=== PATIENT | male | born 1975 | race Two or more races ===

== ENCOUNTER 2017-04-15 07:11 | Emergency (ER) | payer BC, OTHER ==
--- NOTE | 2017-04-15 08:57 | RAD ---
INDICATION: Left hand injury. TECHNIQUE: 4 views of the left hand were obtained. FINDINGS: The bones are in normal alignment. There is a lucent lesion which is mildly expansile with endosteal scalloping measuring 1.2 x 0.9 cm in size in the distal diaphysis of the fifth metacarpal. On one view there is suggestion of an oblique nondisplaced pathologic fracture through this region. IMPRESSION: LUCENT SLIGHTLY EXPANSILE LESION IN THE DISTAL DIAPHYSIS OF THE FIFTH METACARPAL POSSIBLY AN ENCHONDROMA ALTHOUGH NONSPECIFIC. THERE APPEARS TO BE A NONDISPLACED PATHOLOGIC FRACTURE THROUGH THIS REGION. RECOMMEND CLINICAL CORRELATION AND ORTHOPEDIC FOLLOW-UP.
[2017-04-15 10:44] VITALS: BP 120/72
--- NOTE | 2017-04-16 08:31 | ED ---
Yinka Schmid Angela, scribed for Zackary Lundberg MD on 04/15/17 at 0810 . Upper Extremity Pain - HPI Summary HPI Summary: This pt is a 42 y/o male prsenting to [facility] c/o left hand since yesterday s/p playing hockey. Pt reports he had a hockey game yesterday but denies injuring his hand. Pt has decreased range of motion of his left fifth finger. He notes his pain is aggravated with movement. Denies any PMHx. - History of Current Complaint Chief Complaint: EDExtremityUpper Stated Complaint: LT HAND INJURY Time Seen by Provider: 04/15/17 08:00 Hx Obtained From: Patient Mechanism Of Injury: Other - no trauma or injury Onset/Duration: Started Hours Ago, Still Present Timing: Lasting Hours Severity Currently: Moderate Pain Location: Hand - left Aggravating Factor(s): Movement Alleviating Factor(s): Nothing Associated Signs & Symptoms: Positive: Negative PMH/Surg Hx/FS Hx/Imm Hx Endocrine/Hematology History: Denies: Hx Diabetes Cardiovascular History: Denies: Hx Hypertension Infectious Disease History: No Infectious Disease History: Denies: Traveled Outside the [place] in Last 30 Days - Family History Known Family History: Positive: None - Social History Alcohol Use: None Substance Use Type: Reports: None Smoking Status (MU): Never Smoked Tobacco Review of Systems Negative: Fever, Chills Eyes: Negative ENT: Negative Cardiovascular: Negative Respiratory: Negative Musculoskeletal: Other - left hand pain Skin: Negative Neurological: Negative All Other Systems Reviewed And Are Negative: Yes Physical Exam - Summary Physical Exam Summary: VITAL SIGNS: Reviewed. GENERAL: Patient is a well-developed and nourished male who is lying comfortable in the stretcher. Patient is not in any acute respiratory distress. HEAD AND FACE: No signs of trauma. No ecchymosis, hematomas or skull depressions. No sinus tenderness. EYES: PERRLA, EOMI x 2, No injected conjunctiva, no nystagmus. EARS: Hearing grossly intact. Ear canals and tympanic membranes are within normal limits. MOUTH: Oropharynx within normal limits. NECK: Supple, trachea is midline, no adenopathy, no JVD, no carotid bruit, no c- spine tenderness, neck with full ROM. CHEST: Symmetric, no tenderness at palpation LUNGS: Clear to auscultation bilaterally. No wheezing or crackles. CVS: Regular rate and rhythm, S1 and S2 present, no murmurs or gallops appreciated. ABDOMEN: Soft, non-tender. No signs of distention. No rebound no guarding, and no masses palpated. Bowel sounds are normal. EXTREMITIES: no edema, no cyanosis or clubbing. LUE: left hand tenderness in the lateral aspect of the hand. No swelling. No ecchymosis. Decreased ROM of left pinky. NEURO: Alert and oriented x 3. No acute neurological deficits. Speech is normal and follows commands. SKIN: Dry and warm Triage Information Reviewed: Yes Vital Signs On Initial Exam: Initial Vitals Temp Pulse Resp BP Pulse Ox 97.5 F 56 18 124/75 96 04/15/17 07:17 04/15/17 07:17 04/15/17 07:17 04/15/17 07:17 04/15/17 07:17 Vital Signs Reviewed: Yes Diagnostics - Vital Signs Vital Signs Temp Pulse Resp BP Pulse Ox 04/15/17 07:17 97.5 F 56 18 124/75 96 - Laboratory Lab Statement: Any lab studies that have been ordered have been reviewed, and results considered in the medical decision making process. - Radiology Left hand XR Xray Interpretation: Positive (See Comments) - IMPRESSION: Lucent slightly expansible lesion in the distal diaphysis of the fifth metacarpal possibly an enchondroma although nonspecific. There appears to be a nondisplaced pathologic fracture through this region. Recommend clinical correlation and orthopedic follow up. Dr. Lundberg has reviewed this radiology report. Radiology Interpretation Completed By: Radiologist Course/Dx - Course Course Of Treatment: Ulnar gutter splint placed w/o complications. Neurovascular intact before and after splint. Assessment/Plan: This pt is a 42 y/o male prsenting to [facility] c/o left hand since yesterday s/p playing hockey. Pt reports he had a hockey game yesterday but denies injuring his hand. Pt has decreased range of motion of his left fifth finger. He notes his pain is aggravated with movement. Denies any PMHx. In the ED course the pt denied any pain medications. Left hand XR shows lucent slightly expansible lesion in the distal diaphysis of the fifth metacarpal possibly an enchondroma although nonspecific. There appears to be a nondisplaced pathologic fracture through this region. Recommend clinical correlation and orthopedic follow up. I discussed the case with Dr. Bowden, orthopedist, who reports the pt can be discharged home with follow up from Dr. Resendez to rule out enchondroma. Therefore the pt will be discharged to home with follow up from Dr. Resendez, orthopedist. Pt is hemodynamically stable, alert and oriented x3. - Diagnoses Provider Diagnoses: Fracture of fifth metacarpal bone of left hand, rule out enchondroma - Physician Notifications Discussed Care of Patient With: Cony Bowden Time Discussed With Above Provider: 09:34 Instructed by Provider To: Other - I discussed pt care with Dr. Bowden, orthopedist, who reports the pt can be discharged home with follow up from Dr. Resendez. Discharge - Discharge Plan Condition: Stable Disposition: HOME Patient Education Materials: Finger Fracture (ED) Referrals: Silas Vazquez MD [Primary Care Provider] - Lexa Resendez MD [Medical Doctor] - Additional Instructions: Please follow up with Dr. Resendez, orthopedics, and your primary care provider. RETURN TO THE ED FOR ANY WORSENING SYMPTOMS. The documentation as recorded by the Yinka anders Angela accurately reflects the service I personally performed and the decisions made by me, Zackary Lundberg MD.
== END 2017-04-15 10:42 | disposition home or self-care (01) ==
LOC: ED 07:11
DX: S62.307A Unspecified fracture of fifth metacarpal bone, left hand, initial encounter for closed fracture (principal); X58.XXXA Exposure to other specified factors, initial encounter; Y93.22 Activity, ice hockey; Y92.9 Unspecified place or not applicable
CPT/HCPCS: 99282

== ENCOUNTER 2017-12-23 18:12 | Emergency (ER) | payer BC ==
[2017-12-23] MEDS ORDERED: Lidocaine 2% 10 ML* VIAL INJ ONE (19:06)
[2017-12-23] MEDS ORDERED: Lidocaine 2% EPI 1:200000 MPF*10-20 ML VIAL ONE (19:06)
--- NOTE | 2017-12-23 19:17 | ED ---
Lower Extremity - HPI Summary HPI Summary: This patient is a 42 year old M presenting to [facility] with a chief complaint of a laceration on the posterior of his right heel [employer]. The patient was at work when his heel was caught onto an automatic door when walking through it. The patient rates his pain 3/10 in severity. 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 The patient has no other medical complaints. - History of Current Complaint Chief Complaint: EDExtremityLower Stated Complaint: LT FOOT INJURY Time Seen by Provider: 12/23/17 18:59 Hx Obtained From: Patient Mechanism Of Injury: Incised Onset of Pain: Post Accident Onset/Duration: Minutes Severity Initially: Mild Severity Currently: None Pain Intensity: 3 Pain Scale Used: 0-10 Numeric Timing: Constant Location: Is Discrete @ - Posterior right heel Aggravating Factor(s): Nothing Able to Bear Weight: Yes - Allergies/Home Medications Allergies/Adverse Reactions: Allergies Allergy/AdvReac Type Severity Reaction Status Date / Time No Known Allergies Allergy Verified 12/23/17 18:18 PMH/Surg Hx/FS Hx/Imm Hx Endocrine/Hematology History: Denies: Hx Diabetes Cardiovascular History: Denies: Hx Hypertension Respiratory History: Denies: Hx Chronic Obstructive Pulmonary Disease (COPD) Infectious Disease History: No Infectious Disease History: Denies: Traveled Outside the [place] in Last 30 Days - Family History Known Family History: Negative: Cardiac Disease, Hypertension, Diabetes - Social History Alcohol Use: None Substance Use Type: Reports: None Smoking Status (MU): Never Smoked Tobacco Review of Systems Negative: Fever Positive: Other - Laceration on posterior right heel. All Other Systems Reviewed And Are Negative: Yes Physical Exam - Summary Physical Exam Summary: Appearance: Well-appearing, Well-nourished, lying in bed comfortable Skin: Warm, dry, no obvious rash. flat 2 cm laceration on right heel over the Achilles Eyes: sclera anicteric, no conjunctival pallor ENT: mucous membranes moist Neck: deferred Respiratory: No signs of respiratory distress Cardiovascular: Appears well perfused, pulses are nml Abdomen: deferred Musculoskeletal: Moving all 4 extremities without obvious discomfort Neurological: Awake and alert, mentation is normal, speech is fluent and appropriate Psychiatric: affect is normal, does not appear anxious or depressed Triage Information Reviewed: Yes Vital Signs On Initial Exam: Initial Vitals Temp Pulse Resp BP Pulse Ox 97.2 F 50 17 124/80 98 12/23/17 18:15 12/23/17 18:15 12/23/17 18:15 12/23/17 18:15 12/23/17 18:15 Vital Signs Reviewed: Yes Procedures - Laceration/Wound Repair 1 Location: lower extremity - Posterior right heel Description: Linear Laceration/Wound Explored: clean Suture Type: Other - Horizontal mattress Number of Sutures: 1 Diagnostics - Vital Signs Vital Signs Temp Pulse Resp BP Pulse Ox 12/23/17 18:15 97.2 F 50 17 124/80 98 - Laboratory Lab Statement: Any lab studies that have been ordered have been reviewed, and results considered in the medical decision making process. Lower Extremity Course/Dx - Course Course Of Treatment: This patient is a 42 year old M presenting to [facility] with a chief complaint of a laceration on the posterior of his left heel [employer]. Upon examination, the 2 cm laceration required a horizontal mattress suture. The suture was applied by the ED provider and a plan for discharge was discussed. The patient was agreeable with this plan. - Diagnoses Provider Diagnoses: Laceration of ankle, right Discharge - Sign-Out/Discharge Documenting (check all that apply): Patient Departure - Discharge - Discharge Plan Condition: Improved Disposition: HOME Patient Education Materials: Care For Your Stitches (ED), Laceration (ED) Referrals: Silas Vazquez MD [Primary Care Provider] - - Billing Disposition and Condition Condition: IMPROVED Disposition: Home - Attestation Statements Document Initiated by John: Yes Documenting Scribe: Lexa Gilbert Provider For Whom John is Documenting (Include Credential): Jeff Lemus MD Scribe Attestation: Lexa Schmid scribed for Jeff Lemus MD on 12/23/17 at 2252. Scribe Documentation Reviewed: Yes Provider Attestation: The documentation as recorded by the Lexa anders accurately reflects the service I personally performed and the decisions made by me, Jeff Lemus MD
[2017-12-23] MEDS ORDERED: Tetan/Diph/Pertus SYR(Tdap)* 0.5 ML SYR(BOOSTRIX) use SYR IM ONE (19:22)
[2017-12-23 19:35] VITALS: BP 121/81
== END 2017-12-23 19:34 | disposition home or self-care (01) ==
LOC: ED 18:12
DX: S91.311A Laceration without foreign body, right foot, initial encounter (principal); W26.8XXA Contact with other sharp object(s), not elsewhere classified, initial encounter; Y92.9 Unspecified place or not applicable
CPT/HCPCS: 12001; 90471; 90715; 96372; 99281

== ENCOUNTER 2023-05-26 08:17 | Observation (INO) ==
[~2023-05-26 08:17] MED LIST: Lidocaine 2% PF 5 ML VIAL ONE; Midazolam 2 mg/2 ml VIAL 1 mg/ml 2 ml VIAL (2 mg) ONE; Naloxone 0.4 mg VIAL 0.4 mg/ml 1 ml VIAL IV PRN; Ondansetron 4 mg VIAL 2 MG/ML 2 ml VIAL IV PRN; Propofol 10 MG/ML 20 ML BTL ONE; Rocuronium 50 mg VIAL 10 mg/ml 5 ml VIAL (50 mg) ONE; fentaNYL 100 mcg/2 ml 50 MCG/ML VIAL IV PRN; fentaNYL 100 mcg/2 ml 50 MCG/ML VIAL ONE
[2023-05-26] MEDS ORDERED: ceFAZolin 2 GM PREMIX 2 GM/50 ML BAG ONE (08:51)
[2023-05-26] MEDS ORDERED: Ropivacaine 5 MG/ML 20 ML VIAL 0.5% (100 MG) ONE (08:54)
[2023-05-26] MEDS ORDERED: Midazolam 2 mg/2 ml VIAL 1 mg/ml 2 ml VIAL (2 mg) ONE (08:56)
[2023-05-26] MEDS ORDERED: Dexamethasone IV 4 MG/ML VIAL 1 ml VIAL ONE (08:56)
[2023-05-26] MEDS ORDERED: fentaNYL 100 mcg/2 ml 50 MCG/ML VIAL ONE (08:56)
[2023-05-26] MEDS ORDERED: Dexmedetomidine 200 mcg/2 ml 2 ml VIAL (200 mcg) ONE (08:59)
[2023-05-26] MEDS ORDERED: Atropine 1 MG/ML INJ 1 ML VIAL ONE ×2 (09:17→11:07)
[2023-05-26 10:49] LABS: Albumin 4.3 g/dL (3.2-5.2); Calcium 9.3 mg/dL (8.6-10.3); Creatinine, Serum 1.12 mg/dL (0.67-1.17); Globulin 2.1 g/dL (2-4); Potassium 4.2 mmol/L (3.5-5.0); Total Bilirubin 0.9 mg/dL (0.2-1.0); Total Protein 6.4 g/dL (6.4-8.9); eGFR CKD-EPI 81.5 (>60)
[2023-05-26 11:40] LABS: High Sensitivity Troponin 1 Hr 3 pg/mL (<20)
[2023-05-26 11:46] LABS: Rapid COVID-19 Molecular Undetected (Undetected)
[2023-05-26] MEDS: Lactated Ringers 1000 ml BAG 1,000 ML IV SCH (14:29)
[2023-05-26] MEDS: Buffered Lidocaine 1% SYRIN 1 ml INTRADERM ONE (14:29)
[2023-05-26 16:47] LABS: TSH Ultra Thyroid Stim Horm 1.73 mcIU/mL (0.34-5.60)
[2023-05-27 05:45] VITALS: BP 113/70
[2023-05-27 06:52] LABS: Calcium 8.9 mg/dL (8.6-10.3); Creatinine, Serum 1.15 mg/dL (0.67-1.17); Magnesium 2.1 mg/dL (1.9-2.7); Potassium 4.3 mmol/L (3.5-5.0)
== END 2023-05-27 11:02 | disposition home or self-care (01) ==
LOC: MEDTELE 08:17 → OR 08:17 → SUATTDRO 13:52
PROVIDERS: ADMIT Orthopaedic Surgery Hand Surgery; ATTEND Student in an Organized Health Care Education/Training Program